=== PATIENT | male | born 1955 | race Caucasian/White ===

== ENCOUNTER 2017-11-27 21:43 | Emergency (ER) | payer BC ==
[~2017-11-27] VITALS: Ht 185.4 cm; Wt 109.1 kg
[~2017-11-27 21:43] MED LIST: CARTIA XT120 MG PO; CEPHALEXIN500 M1 PO; LEVAQUIN 250MG250 MG PO; MULTAQ400 MG PO; NO HOME MEDICATIONS; OMEPRAZOLE20 MG PO
[2017-11-27 21:53] VITALS: TEMP 99.1
[2017-11-27] MEDS ORDERED: ASPIRIN 81M81 MG/TA2 PO (21:54)
[2017-11-27 22:36] LABS: MEAN CELL VOLUME 90 fl (80.0-100.0); MEAN CORPUSCULAR HGB CONC 34 g/dl (33.0-37.0); MEAN PLATELET VOLUME 9.1 fl (7.4-10.4); PLATELET COUNT 155 K/mm3 (130-400); RED BLOOD COUNT 6.11 M/mm3 (4.20-5.60); REDCELL DISTRIBUTION WIDTH-CV 14.6 % (11.5-14.5)
[2017-11-27 22:37] LABS: HEMATOCRIT 54.8 % (42.0-52.0); HEMOGLOBIN 18.4 g/dl (13.5-18.0); MEAN CORPUSCULAR HEMOGLOBIN 30 pg (27.0-31.0)
[2017-11-27 22:52] LABS: INR 1.1 (0.8-3.0); PROTHROMBIN TIME 13.3 SECONDS (9.7-12.8)
[2017-11-27 22:53] LABS: ALBUMIN 4.1 gm/dL (3.5-5.0); BILIRUBIN,TOTAL 1.8 mg/dL (0.0-1.0); CALCIUM 9.2 mg/dL (8.4-10.2); CREATININE, serum 0.9 mg/dL (0.66-1.25); POTASSIUM 4.5 mmol/L (3.4-5.0); TOTAL PROTEIN 8.8 gm/dL (6.4-8.2)
[2017-11-27 23:05] LABS: BAND 1 % (0-10); BASOPHIL 2 % (0-2); LYMPHOCYTE 10 % (20.0-51.0); NEUTROPHILS 82 % (42.0-75.2)
[2017-11-28 01:23] VITALS: BP 114/97; PULSE 123
== END 2017-11-28 01:25 | disposition short-term general hospital (02) ==
LOC: COL.ER 21:43
PROVIDERS: Emergency Medicine
DX: J44.1 Chronic obstructive pulmonary disease with (acute) exacerbation (principal); I48.91 Unspecified atrial fibrillation; Z79.82 Long term (current) use of aspirin; Z87.891 Personal history of nicotine dependence
CPT/HCPCS: J7030; J7050; J7512

== ENCOUNTER 2017-12-07 12:21 | Outpatient (CLI) | payer BC ==
[~2017-12-07] VITALS: Ht 185.4 cm; Wt 104.5 kg
[~2017-12-07 12:21] MED LIST changes: +ASPIRIN 81M81 MG/TA2 PO
[2017-12-07 12:58] LABS: MEAN CELL VOLUME 86 fl (80.0-100.0); MEAN CORPUSCULAR HGB CONC 36 g/dl (33.0-37.0); MEAN PLATELET VOLUME 8.7 fl (7.4-10.4); PLATELET COUNT 304 K/mm3 (130-400); RED BLOOD COUNT 6.73 M/mm3 (4.20-5.60); REDCELL DISTRIBUTION WIDTH-CV 14.3 % (11.5-14.5)
[2017-12-07 12:59] LABS: AMYLASE 65 U/L (30-110); CREATININE, serum 1.03 mg/dL (0.66-1.25); LIPASE 73 U/L (23-300)
[2017-12-07 13:08] LABS: HEMATOCRIT 57.8 % (42.0-52.0); HEMOGLOBIN 20.7 g/dl (13.5-18.0); MEAN CORPUSCULAR HEMOGLOBIN 31 pg (27.0-31.0)
[2017-12-07] MEDS ORDERED: XARELTO20 MG PO (13:14)
[2017-12-07 13:15] LABS: TROPONIN-I < 0.012 ng/mL (0.000-0.034)
[2017-12-07] MEDS ORDERED: ZESTRIL 5MG5 MG PO (13:15)
[2017-12-07] MEDS ORDERED: CARDIZEM CD 24240 MG PO (13:25)
[2017-12-07 13:28] VITALS: BP 118/95; PULSE 166
[2017-12-07 13:29] LABS: INR 1.8 (0.8-3.0); PROTHROMBIN TIME 20.8 SECONDS (9.7-12.8)
[2017-12-07 14:05] LABS: MEAN CELL VOLUME 88 fl (80.0-100.0); MEAN CORPUSCULAR HGB CONC 35 g/dl (33.0-37.0); MEAN PLATELET VOLUME 9.1 fl (7.4-10.4); PLATELET COUNT 316 K/mm3 (130-400); RED BLOOD COUNT 6.74 M/mm3 (4.20-5.60); REDCELL DISTRIBUTION WIDTH-CV 14.4 % (11.5-14.5)
[2017-12-07 14:10] LABS: ALBUMIN 3.8 gm/dL (3.5-5.0); BILIRUBIN,TOTAL 2.7 mg/dL (0.0-1.0); CALCIUM 9.7 mg/dL (8.4-10.2); CREATININE, serum 1.07 mg/dL (0.66-1.25); MAGNESIUM 2.1 mg/dL (1.6-2.3); POTASSIUM 4.3 mmol/L (3.4-5.0); TOTAL PROTEIN 8.3 gm/dL (6.4-8.2)
[2017-12-07 14:21] LABS: HEMATOCRIT 59.1 % (42.0-52.0); MEAN CORPUSCULAR HEMOGLOBIN 31 pg (27.0-31.0)
[2017-12-07 14:23] LABS: HEMOGLOBIN 20.7 g/dl (13.5-18.0)
[2017-12-07 14:25] VITALS: BP 105/85; PULSE 75
[2017-12-07 14:43] VITALS: BP 108/83; PULSE 70
[2017-12-07 15:09] VITALS: BP 108/72; PULSE 68; TEMP 98
[2017-12-07 15:40] VITALS: BP 105/70; PULSE 62; TEMP 98.2
[2017-12-08] MEDS ORDERED: CARAFATE 1GM1 G PO (14:14)
[2017-12-08] MEDS ORDERED: NORCO 325 MG-51 TAB PO (14:14)
[2017-12-08] MEDS ORDERED: PRIL40 PO (14:14)
== END 2017-12-07 18:45 | disposition home or self-care (01) ==
LOC: COL.RAD 12:21
PROVIDERS: Internal Medicine Interventional Cardiology
DX: I48.0 Paroxysmal atrial fibrillation (principal); K55.059 Acute (reversible) ischemia of intestine, part and extent unspecified; I50.22 Chronic systolic (congestive) heart failure; I83.893 Varicose veins of bilateral lower extremities with other complications
CPT/HCPCS: J0282; J2250; J3010; J7060; J7120; Q9967

== ENCOUNTER 2017-12-08 11:31 | Emergency (ER) | payer BC ==
[~2017-12-08] VITALS: Ht 185.4 cm; Wt 106.8 kg
[~2017-12-08 11:31] MED LIST changes: +CARDIZEM CD 24240 MG PO; +XARELTO20 MG PO; +ZESTRIL 5MG5 MG PO
[2017-12-08 12:00] LABS: MEAN CELL VOLUME 85 fl (80.0-100.0); MEAN CORPUSCULAR HGB CONC 36 g/dl (33.0-37.0); MEAN PLATELET VOLUME 9.2 fl (7.4-10.4); PLATELET COUNT 283 K/mm3 (130-400); RED BLOOD COUNT 6.39 M/mm3 (4.20-5.60); REDCELL DISTRIBUTION WIDTH-CV 14.3 % (11.5-14.5)
[2017-12-08 12:01] LABS: HEMATOCRIT 54.5 % (42.0-52.0); HEMOGLOBIN 19.6 g/dl (13.5-18.0); MEAN CORPUSCULAR HEMOGLOBIN 31 pg (27.0-31.0)
[2017-12-08 12:14] LABS: ALANINE AMINOTRANSFERASE 44 U/L (21-72); ALBUMIN 3.7 gm/dL (3.5-5.0); ALKALINE PHOSPHATASE 54 U/L (50-136); ANION GAP 14 mmol/L (7-16); AST,SGOT 26 U/L (15-37); BILIRUBIN,TOTAL 2.3 mg/dL (0.0-1.0); BLOOD UREA NITROGEN 31 mg/dL (9-20); CALCIUM 9.2 mg/dL (8.4-10.2); CARBON DIOXIDE 22 mmol/L (22-30); CHLORIDE 95 mmol/L (98-107); CREATININE, serum 0.89 mg/dL (0.66-1.25); GLUCOSE 106 mg/dL (74-106); LIPASE 142 U/L (23-300); POTASSIUM 4.3 mmol/L (3.4-5.0); SODIUM 131 mmol/L (137-145)
[2017-12-08 12:16] LABS: BAND 1 % (0-10); EOSINOPHIL 1 % (0-4); LYMPHOCYTE 11 % (20.0-51.0); NEUTROPHILS 81 % (42.0-75.2)
[2017-12-08 12:17] LABS: ANISOCYTOSIS 1+; PLATELET ESTIMATE NORMAL (NORMAL)
[2017-12-08 12:24] LABS: TROPONIN-I < 0.012 ng/mL (0.000-0.034)
[2017-12-08 13:08] LABS: COLLECTION METHOD CLEAN CATCH
[2017-12-08 13:13] LABS: MUCOUS Present /lpf; PH 6 (5-8); SQUAMOUS EPITHELIAL None Seen /hpf; URINE APPEARANCE Clear; URINE BACTERIA None Seen /hpf; URINE BILIRUBIN Negative (NEGATIVE); URINE BLOOD Negative (NEGATIVE); URINE COLOR Yellow; URINE GLUCOSE Negative (NEGATIVE); URINE KETONE 1+ (NEGATIVE); URINE LEUKOCYTE ESTERASE Negative (NEGATIVE); URINE NITRATE Negative (NEGATIVE); URINE PROTEIN(semi-quant) Negative (NEGATIVE); URINE RBC 0-2 /hpf; URINE UROBILINOGEN >=4.0 mg/dL (NEGATIVE)
[2017-12-08] MEDS ORDERED: CARAFATE 1GM1 G PO (14:14)
[2017-12-08] MEDS ORDERED: NORCO 325 MG-51 TAB PO (14:14)
[2017-12-08] MEDS ORDERED: PRIL40 PO (14:14)
[2017-12-08 14:26] VITALS: BP 113/77; PULSE 63; TEMP 97.3
== END 2017-12-08 14:25 | disposition home or self-care (01) ==
LOC: COL.ER 11:31
PROVIDERS: Emergency Medicine
DX: R10.13 Epigastric pain (principal); J44.9 Chronic obstructive pulmonary disease, unspecified; I48.91 Unspecified atrial fibrillation; I10 Essential (primary) hypertension; Z87.891 Personal history of nicotine dependence; Z98.890 Other specified postprocedural states; Z79.82 Long term (current) use of aspirin
CPT/HCPCS: J7030; Q9967

== ENCOUNTER 2018-09-09 11:37 | Day surgery (SDC) | payer BC ==
[~2018-09-09] VITALS: Ht 185.4 cm; Wt 127.3 kg
[~2018-09-09 11:37] MED LIST changes: +CARAFATE 1GM1 G PO; +NORCO 325 MG-51 TAB PO; +PRIL40 PO
[2018-09-09 12:00] VITALS: BP 111/68; PULSE 77; TEMP 98
[2018-09-09 12:13] LABS: INR 2.5 (0.8-3.0); POTASSIUM 4.3 mmol/L (3.4-5.0); PROTHROMBIN TIME 28.3 SECONDS (9.7-12.8)
[2018-09-09] MEDS ORDERED: CORDARONE200 MG/TAB PO (12:18)
[2018-09-09] MEDS ORDERED: MULTI VITAMINS1 TAB PO (12:21)
[2018-09-09 12:47] LABS: THYROID STIMULATING HORMONE 1.43 uIU/mL (0.465-4.680)
[2018-09-09 14:00] VITALS: BP 91/65; PULSE 79; TEMP 98
[2018-09-09 14:15] VITALS: BP 101/65; PULSE 54
[2018-09-09 14:30] VITALS: BP 98/69; PULSE 51
[2018-09-09 14:45] VITALS: BP 100/69; PULSE 52
[2018-09-09 15:00] VITALS: BP 106/74; PULSE 55
--- NOTE | 2018-09-09 15:00 | NUR ---
Pt's gag reflex was intact and swallowing water with no difficulty. Pt does not complain of N/V. Pt voiding with no complications. Pt does not complain of pain. Discharge instructions were reviewed with the pt. Pt voices understanding. Pt will call Dr. Foy's office to set up a one month follow up. Pt aware. IV was discontinued with catheter tip intact, no phlebitis or infiltration. Pt was discharged via wheelchair to the care of spouse in private vehicle with personal belongings and discharge instructions in hand.
[2018-09-09 15:28] LABS: ALBUMIN 4.2 gm/dL (3.5-5.0)
--- NOTE | 2018-09-09 15:57 | NUR ---
REPORT TAKEN FROM NOA CALVO IN [employer]. PT WAS CONVERTED TO SINUS BRADICARDIA WITH 150J.
[2018-09-09 15:58] LABS: BILIRUBIN UNCONJUGATED 1.3 mg/dL (0.0-1.1); BILIRUBIN,DIRECT 0.3 mg/dL (0.0-0.4); BILIRUBIN,TOTAL 1.7 mg/dL (0.0-1.0)
== END 2018-09-09 15:15 | disposition home or self-care (01) ==
LOC: COL.CAR 11:37
PROVIDERS: Internal Medicine Interventional Cardiology
DX: I48.0 Paroxysmal atrial fibrillation (principal); I11.0 Hypertensive heart disease with heart failure; I50.22 Chronic systolic (congestive) heart failure; Z79.01 Long term (current) use of anticoagulants; Z79.82 Long term (current) use of aspirin; Z82.49 Family history of ischemic heart disease and other diseases of the circulatory system; Z87.891 Personal history of nicotine dependence
CPT/HCPCS: G9654; J2704; J7030

== ENCOUNTER 2019-07-07 11:26 | Day surgery (SDC) | payer BC ==
[~2019-07-07] VITALS: Ht 185.4 cm; Wt 127.0 kg
[~2019-07-07 11:26] MED LIST changes: +CORDARONE200 MG/TAB PO; +MULTI VITAMINS1 TAB PO
[2019-07-07 12:25] VITALS: BP 110/92; PULSE 94; TEMP 98.1
[2019-07-07 12:30] LABS: INR 2.6 (0.8-3.0); PROTHROMBIN TIME 31.7 SECONDS (9.7-12.8)
[2019-07-07] MEDS ORDERED: CARAFATE 1GM1 G PO (12:31)
[2019-07-07 12:32] LABS: POTASSIUM 4.2 mmol/L (3.4-5.0)
[2019-07-07 13:06] LABS: THYROID STIMULATING HORMONE 1.59 uIU/mL (0.465-4.680)
[2019-07-07 13:45] VITALS: BP 94/63; PULSE 57
--- NOTE | 2019-07-07 13:45 | NUR ---
FANNY/CV complete and report from Reena Suh RN. Pt resting well in bed.
[2019-07-07 14:00] VITALS: BP 119/87; PULSE 60
[2019-07-07 14:15] VITALS: BP 118/86; PULSE 60
[2019-07-07 14:30] VITALS: BP 120/80; PULSE 60
[2019-07-07 14:45] VITALS: BP 126/80; PULSE 60
--- NOTE | 2019-07-07 14:55 | NUR ---
Pt has ambulated, voided and antionette PO intake s n/v. PIV removed with catheter intact.
--- NOTE | 2019-07-07 15:00 | NUR ---
Pt discharged per w/c by nurse with .
== END 2019-07-07 15:37 | disposition home or self-care (01) ==
LOC: COL.CAR 11:26
PROVIDERS: Internal Medicine Interventional Cardiology
DX: I48.0 Paroxysmal atrial fibrillation (principal); I10 Essential (primary) hypertension; I25.10 Atherosclerotic heart disease of native coronary artery without angina pectoris; I11.0 Hypertensive heart disease with heart failure; I50.9 Heart failure, unspecified; K21.9 Gastro-esophageal reflux disease without esophagitis; D64.9 Anemia, unspecified; Z79.01 Long term (current) use of anticoagulants; Z87.891 Personal history of nicotine dependence; Z82.49 Family history of ischemic heart disease and other diseases of the circulatory system
CPT/HCPCS: J2704; J7030

== ENCOUNTER 2022-09-11 08:55 | Inpatient (IN) | payer MEDICARE, BC ==
[~2022-09-11] VITALS: Ht 185.4 cm; Wt 97.0 kg
[2022-09-11 10:19] LABS: CALCIUM 9.2 mg/dL (8.4-10.2); CREATININE, serum 1.06 mg/dL (0.72-1.25); POTASSIUM 4.4 mmol/L (3.5-4.5)
[2022-09-11 10:36] LABS: MUCOUS Present (NOT PRESENT); SQUAMOUS EPITHELIAL None Seen /hpf (0-10); URINE BACTERIA Rare /hpf (NONE SEEN); URINE RBC >50 /hpf (0-2); URINE WBC >50 /hpf (0-2)
[2022-09-11 10:37] LABS: PH 6.5 (5.0-8.5); URINE APPEARANCE Hazy (CLEAR/HAZY); URINE COLOR Yellow (YELLOW); URINE GLUCOSE Negative (NEGATIVE); URINE KETONE 1+ (NEGATIVE); URINE PROTEIN(semi-quant) Negative (NEGATIVE)
[2022-09-11 10:38] LABS: URINE BLOOD 3+ (NEGATIVE); URINE NITRATE Positive (NEGATIVE)
[2022-09-11 10:54] LABS: HEMATOCRIT 44.7 % (42.0-52.0); HEMOGLOBIN 15.3 g/dl (13.5-18.0); MEAN CELL VOLUME 88 fl (80.0-100.0); MEAN CORPUSCULAR HEMOGLOBIN 30 pg (27-31); MEAN CORPUSCULAR HGB CONC 34 g/dl (33.0-37.0); MEAN PLATELET VOLUME 8.8 fl (7.4-10.4); PLATELET COUNT 250 K/mm3 (130-400); RED BLOOD COUNT 5.07 M/mm3 (4.20-5.60)
[2022-09-11 11:07] LABS: MAGNESIUM 1.9 mg/dL (1.6-2.6); PHOSPHOROUS 2.5 mg/dL (2.3-4.7)
[2022-09-11 11:14] LABS: TROPONIN-I 0.019 ng/mL (0.00-0.033)
[2022-09-11] MEDS ORDERED: VITAMIN D31000 I1 PO (11:28)
[2022-09-11] MEDS ORDERED: MULTI VITAMINS1 TAB PO (11:29)
[2022-09-11] MEDS ORDERED: NAC600 MG PO (11:30)
[2022-09-11 11:31] LABS: BAND 4 % (0-10); EOSINOPHIL 1 % (0-4); LYMPHOCYTE 4 % (20.0-51.0); NEUTROPHILS 83 % (42.0-75.2); PLATELET ESTIMATE NORMAL (NORMAL)
[2022-09-11 13:06] LABS: INR 1.4 (0.8-3.0); PROTHROMBIN TIME 16.1 SECONDS (9.7-12.8)
[2022-09-11 13:08] LABS: PARTIAL THROMBOPLASTIN TIME 28.4 SECONDS (26.0-37.0)
[2022-09-11 13:59] VITALS: BP 117/82; PULSE 130
[2022-09-11 16:05] LABS: COLLECTION METHOD CATHETER
[2022-09-11 17:17] VITALS: BP 93/55; PULSE 97; TEMP 98.3
--- NOTE | 2022-09-11 18:08 | NUR ---
PATIENT AWAKE AND ALERT, RESTING IN BED. BOLKUS INFUSING. PATIETN DENIES ANY NEEDS OR COMPLAINTS AT THIS TIME. CALL LIGHT [facility] INREACH. MARILEE PATENT AND DRAINING.
--- NOTE | 2022-09-11 19:20 | NUR ---
IVF BOLUS COMPLETE. HEPARIN INFUSING AT 17.5CC/HR, CARDIZEM DRIP INFUSING AT 15CC/HR. PATIENT AWAKE, ALERT AND RESTING IN BED. NO NEEDS OR COMPLAINTS AT THIS TIME. HUNT PATENT AND DRAINING. CALL LIGHT WTIH IN REACH.
[2022-09-11] MEDS ORDERED: PROSCAR 5MG5 MG PO (20:28)
[2022-09-11] MEDS ORDERED: FLOMAX 0.40.4 MG/CAP PO (20:28)
[2022-09-11 20:40] VITALS: BP 110/62; PULSE 103; TEMP 98.9
[2022-09-12] VITALS (7 sets, daily range): BP systolic 107–120; BP diastolic 59–76; PULSE 85–96; TEMP 97.4–100.2
--- NOTE | 2022-09-12 01:24 | NUR ---
SHIFT ASSESSMENT COMPLETED. THE PATIENT IS ALERT AND ORIENTED AND APPROPRIATE. THE PATIENT DENIED NEEDS. HEPARIN AND CARDIZEM INFUSING PER ORDERS. VITAL SIGNS STABLE AT THIS TIME. WILL MONITOR.
[2022-09-12 06:59] LABS: HEMATOCRIT 43.6 % (42.0-52.0); HEMOGLOBIN 14.4 g/dl (13.5-18.0); MEAN CELL VOLUME 90 fl (80.0-100.0); MEAN CORPUSCULAR HEMOGLOBIN 30 pg (27-31); MEAN CORPUSCULAR HGB CONC 33 g/dl (33.0-37.0); MEAN PLATELET VOLUME 8.9 fl (7.4-10.4); PLATELET COUNT 182 K/mm3 (130-400); RED BLOOD COUNT 4.85 M/mm3 (4.20-5.60); REDCELL DISTRIBUTION WIDTH-CV 15.1 % (11.5-14.5)
[2022-09-12 07:13] LABS: ALBUMIN 2.5 gm/dL (3.4-4.8); CALCIUM 8.4 mg/dL (8.4-10.2); CREATININE, serum 0.9 mg/dL (0.72-1.25); MAGNESIUM 1.9 mg/dL (1.6-2.6); PHOSPHOROUS 2.3 mg/dL (2.3-4.7); POTASSIUM 3.6 mmol/L (3.5-4.5)
[2022-09-12 08:39] LABS: BAND 3 % (0-10); NEUTROPHILS 92 % (42.0-75.2)
[2022-09-12 08:40] LABS: ANISOCYTOSIS 1+; PLATELET ESTIMATE NORMAL (NORMAL)
[2022-09-12 14:26] LABS: CLOSTRIDIUM DIFF A/B NEG; CLOSTRIDIUM DIFF A/B INTERP No C.diff present
[2022-09-12 15:33] LABS: BILIRUBIN,DIRECT 1.1 mg/dL (0.0-0.5); BILIRUBIN,TOTAL 2.2 mg/dL (0.2-1.2)
--- NOTE | 2022-09-12 17:44 | NUR ---
PATIENT AWAKE AND ALERT, RESTING IN BED. NO NEEDS OR COMPLAINTS AT THIS TIME. CARDIZEM AND HEPARIN INFUSIONS GOING AT ORDERED RATE. HUNT PATENT AND DRAINING. CALL LIGHT AND BELONGINGS WITHIN REACH.
--- NOTE | 2022-09-12 21:18 | NUR ---
NURSING SHIFT ASSESSMENT COMPLETED. THE PATIENT IS ALERT, ORIENTED AND APPROPRIATE. THE PATIENT DENIED PAIN. A SNACK WAS PROVIDED. THE PATIENT REPORTS A POOR APPETITE. NO OTHER NEEDS AT THIS TIME. WILL MONITOR.
--- NOTE | 2022-09-12 21:18 | NUR ---
PRESENTED TO PATIENT ROOM AT 1938. NOTICED CPAP SET UP AT BEDSIDE. PT SAID THAT HE WOULD BE WEARING HIS HOME CPAP TONIGHT AND THAT IT WAS ALL SET UP AND READY TO GO. HE STATED HE DID NOT NEED ANY WATER OR HELP WITH IT. WILL CALL CLAIR ELIZALDE FOR ORDER. NO COMPLAINTS. NO VOICED CONCERNS
[2022-09-13 03:28] VITALS: BP 92/58; PULSE 83; TEMP 98
[2022-09-13 04:55] LABS: HEMATOCRIT 41.8 % (42.0-52.0); HEMOGLOBIN 14.3 g/dl (13.5-18.0); MEAN CELL VOLUME 88 fl (80.0-100.0); MEAN CORPUSCULAR HEMOGLOBIN 30 pg (27-31); MEAN CORPUSCULAR HGB CONC 34 g/dl (33.0-37.0); PLATELET COUNT 163 K/mm3 (130-400); RED BLOOD COUNT 4.76 M/mm3 (4.20-5.60); REDCELL DISTRIBUTION WIDTH-CV 15.1 % (11.5-14.5)
[2022-09-13 05:16] LABS: ALBUMIN 2.4 gm/dL (3.4-4.8); CALCIUM 8.4 mg/dL (8.4-10.2); CREATININE, serum 0.82 mg/dL (0.72-1.25); MAGNESIUM 1.9 mg/dL (1.6-2.6); PHOSPHOROUS 1.8 mg/dL (2.3-4.7); POTASSIUM 3.7 mmol/L (3.5-4.5)
[2022-09-13 05:53] LABS: BAND 9 % (0-10); LYMPHOCYTE 6 % (20.0-51.0); NEUTROPHILS 80 % (42.0-75.2); PLATELET ESTIMATE NORMAL (NORMAL)
[2022-09-13 05:54] LABS: ANISOCYTOSIS 1+
[2022-09-13 05:55] LABS: BURR CELLS 1+
[2022-09-13 06:43] VITALS: BP 111/65; PULSE 80
[2022-09-13 11:10] VITALS: BP 84/50; PULSE 87; TEMP 98
--- NOTE | 2022-09-13 12:24 | NUR ---
Pt is independent on all ADls and does not use any DME. Pt lives at home with his , Isabel @ [phone]. Pt gets his medications from [facility] and PCP is Chacorta Vazquez. No other needs at this time. SW to await further recommendations and follow up as needed. DC: Home.
[2022-09-13 16:17] VITALS: BP 97/64; PULSE 85; TEMP 98.2
--- NOTE | 2022-09-13 16:37 | NUR ---
PATIENT IS PLEASANT TODAY. RECEIVING IV ABX ABD WAS GIVEN 3MG OF MAGNESIUM TODAY. CARDIZEM DRIP CHANGED TO 10ML PER HOUR. HEPARIN DRIP RUNNING AT 20ML PER HOUR. PLAN IS FOR FANNY/CARDIOVERSION THURSDAY 09/14. VSS.
[2022-09-13 19:45] VITALS: BP 98/64; PULSE 92; TEMP 98.2
[2022-09-13] MEDS ORDERED: CARAFATE 1GM1 G PO (21:29)
[2022-09-13] MEDS ORDERED: PROTONIX 40MG T40 MG PO (21:29)
[2022-09-14] VITALS (9 sets, daily range): BP systolic 100–113; BP diastolic 64–82; PULSE 75–93; TEMP 97.6–98
--- NOTE | 2022-09-14 03:39 | NUR ---
SPOKE WITH PT EARLIER THIS SHIFT ABOUT USING CPAP FOR SLEEPING. PT STATES HE NORMALLY WOULD, BUT FORGOT THE "CLEANING MACHINE" AND WILL NOT TAKE THE RISK OF BREATING IN SOMETHING DANGEROUS. OFFERED PT ONE OF OUR UNITS, PT DOES NOT FEEL THE NEED FOR THIS OPTION. PT WILL THINK ABOUT USAGE FOR TOMORROW NIGHT.
[2022-09-14 06:44] LABS: BASO % 0.2 % (0.0-2.0); EOS # 0.1 K/mm3 (0.0-0.7); EOS % 0.6 % (0.0-4.0); GRAN # 6.7 K/mm3 (1.4-6.5); GRAN % 75.1 % (42.2-75.2); HEMATOCRIT 42.3 % (42.0-52.0); HEMOGLOBIN 14.3 g/dl (13.5-18.0); LYMPH # 0.8 K/mm3 (1.2-3.4); LYMPH % 8.7 % (20.0-51.0); MEAN CELL VOLUME 89 fl (80.0-100.0); MEAN CORPUSCULAR HEMOGLOBIN 30 pg (27-31); MEAN CORPUSCULAR HGB CONC 34 g/dl (33.0-37.0); MEAN PLATELET VOLUME 9.5 fl (7.4-10.4); MONO # 1.3 K/mm3 (0.1-0.6); MONO % 14.7 % (1.7-9.3); PLATELET COUNT 164 K/mm3 (130-400); RED BLOOD COUNT 4.77 M/mm3 (4.20-5.60)
[2022-09-14 06:55] LABS: ALBUMIN 2.2 gm/dL (3.4-4.8); CALCIUM 8.2 mg/dL (8.4-10.2); CREATININE, serum 0.73 mg/dL (0.72-1.25); PHOSPHOROUS 2.5 mg/dL (2.3-4.7); POTASSIUM 3.4 mmol/L (3.5-4.5)
[2022-09-14] MEDS ORDERED: TURMERIC500 MG PO (09:44)
--- NOTE | 2022-09-14 11:13 | NUR ---
Locomotive Firer/Fireman attended clinical rounds with the team. Hospitalist stated that patient is 50/50 chance of discharge. SW met with patient and reviewed IM form. Patient verbalized understanding and provided signature. SW placed form in chart and provided copy to patient.
[2022-09-14] MEDS ORDERED: LEVAQUIN 750MG750 M1 PO (13:02)
[2022-09-14] MEDS ORDERED: TOPROL XL 50MG50 MG PO (13:02)
[2022-09-14] MEDS ORDERED: TOPROL XL 25MG25 MG PO (13:03)
[2022-09-14] MEDS ORDERED: ELIQUIS 5MG PO (13:04)
--- NOTE | 2022-09-14 15:00 | NUR ---
PATIENTS IV'S AND TELE REMOVED. PATIENT AND HIS GIVEN DISCHARGE INSTRUCTIONS AND EDUCATION. ALL QUESTIONS ANSWERED. HOME HUNT CARE AND MAINTENANCE EDUCATION REVIEWED. PATIENT VERBALIZES UNDERSTANDING AND ALSO STATED HEHAS HAD ONE BEFORE. PATIENT AND HIS AWARE OF HOME MEDICATIONS USES AND WHEN TO TAKE. BOTH VERBALIZE UNDERSTANDING.
--- NOTE | 2022-09-14 15:26 | NUR ---
PATIENT TAKEN OUT VIA WHEELCHAIR, PATIENT LEFT IN STB[place] CONDITION WITH HIS .
== END 2022-09-14 15:00 | disposition home or self-care (01) | DRG 872 ==
LOC: COL.ER 08:55 → MEDICAL 12:21
PROVIDERS: Emergency Medicine; ADMIT Internal Medicine
DX: A41.9 Sepsis, unspecified organism (principal); N30.00 Acute cystitis without hematuria; Q21.12 Patent foramen ovale; J90 Pleural effusion, not elsewhere classified; I48.19 Other persistent atrial fibrillation; N40.1 Benign prostatic hyperplasia with lower urinary tract symptoms; R33.8 Other retention of urine; R39.15 Urgency of urination; K21.9 Gastro-esophageal reflux disease without esophagitis; I11.0 Hypertensive heart disease with heart failure; I50.9 Heart failure, unspecified; D64.9 Anemia, unspecified; E11.9 Type 2 diabetes mellitus without complications; E66.9 Obesity, unspecified; I08.1 Rheumatic disorders of both mitral and tricuspid valves; B96.5 Pseudomonas (aeruginosa) (mallei) (pseudomallei) as the cause of diseases classified elsewhere; I25.10 Atherosclerotic heart disease of native coronary artery without angina pectoris; Z79.01 Long term (current) use of anticoagulants; Z68.28 Body mass index [BMI] 28.0-28.9, adult
CPT/HCPCS: C9113; J0696; J1644; J1956; J2704; J3475; J3480; J7030; J7040

== ENCOUNTER 2022-12-01 09:25 | Inpatient (IN) | payer MEDICARE, BC ==
[~2022-12-01] VITALS: Ht 185.4 cm; Wt 100.0 kg
[2022-12-01] VITALS (9 sets, daily range): BP systolic 89–117; BP diastolic 64–87; PULSE 51–103; TEMP 97.5–98
[~2022-12-01 09:25] MED LIST changes: +ELIQUIS 5MG PO; +FLOMAX 0.40.4 MG/CAP PO; +LEVAQUIN 750MG750 M1 PO; +NAC600 MG PO; +PROSCAR 5MG5 MG PO; +PROTONIX 40MG T40 MG PO; +TOPROL XL 25MG25 MG PO; +TOPROL XL 50MG50 MG PO; +TURMERIC500 MG PO; +VITAMIN D31000 I1 PO
[2022-12-01 10:25] LABS: HEMATOCRIT 45.9 % (42.0-52.0); HEMOGLOBIN 15.2 g/dl (13.5-18.0); MEAN CELL VOLUME 91 fl (80.0-100.0); MEAN CORPUSCULAR HEMOGLOBIN 30 pg (27-31); MEAN CORPUSCULAR HGB CONC 33 g/dl (33.0-37.0); MEAN PLATELET VOLUME 8.9 fl (7.4-10.4); PLATELET COUNT 193 K/mm3 (130-400); RED BLOOD COUNT 5.07 M/mm3 (4.20-5.60); REDCELL DISTRIBUTION WIDTH-CV 14.9 % (11.5-14.5)
[2022-12-01 10:53] LABS: CALCIUM 9.2 mg/dL (8.4-10.2); CREATININE, serum 0.83 mg/dL (0.72-1.25); POTASSIUM 4.4 mmol/L (3.5-4.5)
[2022-12-01 11:13] LABS: THYROID STIMULATING HORMONE 1.007 uIU/mL (0.350-4.940)
[2022-12-01 11:21] LABS: INR 1.6 (0.8-3.0); PARTIAL THROMBOPLASTIN TIME 38.1 SECONDS (26.0-37.0); PROTHROMBIN TIME 18.3 SECONDS (9.7-12.8)
--- NOTE | 2022-12-01 14:49 | NUR ---
BARBARA LATHAM WITH CARDIOLOGY CALLED AND ASKED REGARDING SOTALOL DOSE TODAY FOR BID OR JUST AT HS, ALSO FOR PARAMETERS FOR HR AND BP. STATES SHE WILL TALK WITH AND LET ME KNOW. BARBARA LATHAM CALLED THIS RN BACK. WILL ONLY GIVE 2100 DOSE OF SOTALOL TONIGHT AND PARAMETERS PLACED.
--- NOTE | 2022-12-01 15:22 | NUR ---
pt transferred to med-surg room 353 at approx 1400. VS are WNL at time of discharge and patient is independently ambulatory. he communicated his transfer to his and he was free from concerns and complaints at time of transfer.
--- NOTE | 2022-12-01 15:28 | NUR ---
PT ARRIVED TO UNIT APPROX. 1400. PT ORIENTED TO ROOM AND ASSESSED. TELE PLACED RUNNING SINUS RYTHMN. 1/2 NS 500ML BOLUS ORDERED AND STARTED. EKG OBTAINED BY RESPIRATORY. PT'S SON AT THE BEDSIDE. PT STATED NO QUESTIONS OR CONCERNS AT THIS TIME. PT IS A&O X4, AMBULATES WELL INDEPENDENT AND TOLERATING A GENERAL DIET.
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
[2022-12-02 04:26] VITALS: BP 107/65; PULSE 53; TEMP 97.6
[2022-12-02 06:52] LABS: BASO # 0.1 K/mm3 (0.0-0.2); BASO % 0.6 % (0.0-2.0); EOS # 0.2 K/mm3 (0.0-0.7); EOS % 2.9 % (0.0-4.0); GRAN # 5.4 K/mm3 (1.4-6.5); GRAN % 66.9 % (42.2-75.2); HEMOGLOBIN 13.7 g/dl (13.5-18.0); LYMPH # 1.6 K/mm3 (1.2-3.4); LYMPH % 20.2 % (20.0-51.0); MEAN CELL VOLUME 93 fl (80.0-100.0); MEAN CORPUSCULAR HEMOGLOBIN 30 pg (27-31); MEAN CORPUSCULAR HGB CONC 33 g/dl (33.0-37.0); MEAN PLATELET VOLUME 9.1 fl (7.4-10.4); MONO # 0.7 K/mm3 (0.1-0.6); MONO % 9.1 % (1.7-9.3); PLATELET COUNT 174 K/mm3 (130-400); RED BLOOD COUNT 4.54 M/mm3 (4.20-5.60)
[2022-12-02 07:15] LABS: CALCIUM 8.7 mg/dL (8.4-10.2); CREATININE, serum 0.77 mg/dL (0.72-1.25); POTASSIUM 4.2 mmol/L (3.5-4.5)
[2022-12-02 08:38] VITALS: BP 113/66; PULSE 52; TEMP 97.9
--- NOTE | 2022-12-02 09:15 | NUR ---
Assessment complete. A/O x4. Denies pain or needs at this time.
--- NOTE | 2022-12-02 10:14 | NUR ---
Initial visit; Patient on Sotalol Trial and after one injection appears to be doing well. He thanked Junior Buyer for looking in on him and offering God's blessings.
[2022-12-02 12:00] VITALS: BP 120/73; PULSE 52; TEMP 97.8
--- NOTE | 2022-12-02 14:47 | NUR ---
Patient not in room. Unable to complete intake.
--- NOTE | 2022-12-02 15:40 | NUR ---
ARISTEO met with the patient and his son, Tomas, to discuss discharge plan. The patient lives in [place] with his , Isabel ([phone]). He reports independence with ADLs and does not have any DME. The patient's PCP is Dr. Aster Vazquez and he obtains his medications from [facility]. The patient does not have a DPOA-HC in EMR, but he states that he does have one completed and that it designates his . The patient plans to return home with his upon discharge. No additional needs at this time. *Discharge plan: home with *
[2022-12-02 16:00] VITALS: BP 98/64; PULSE 57; TEMP 97.8
--- NOTE | 2022-12-02 18:08 | NUR ---
Pt denies pain, needs throughout day. Has been up ambulating in hallway independently. Tele SB 56.
[2022-12-02 19:28] VITALS: BP 123/75; PULSE 58; TEMP 98
[2022-12-02 23:18] VITALS: BP 116/73; PULSE 53; TEMP 97.9
[2022-12-03 03:45] VITALS: BP 118/79; PULSE 51; TEMP 98
[2022-12-03 06:47] LABS: BASO # 0.1 K/mm3 (0.0-0.2); BASO % 0.8 % (0.0-2.0); EOS # 0.3 K/mm3 (0.0-0.7); EOS % 3.6 % (0.0-4.0); GRAN # 4.5 K/mm3 (1.4-6.5); GRAN % 62.8 % (42.2-75.2); HEMATOCRIT 43.9 % (42.0-52.0); HEMOGLOBIN 14.4 g/dl (13.5-18.0); LYMPH # 1.7 K/mm3 (1.2-3.4); LYMPH % 23.2 % (20.0-51.0); MEAN CELL VOLUME 92 fl (80.0-100.0); MEAN CORPUSCULAR HEMOGLOBIN 30 pg (27-31); MEAN CORPUSCULAR HGB CONC 33 g/dl (33.0-37.0); MEAN PLATELET VOLUME 9.1 fl (7.4-10.4); MONO # 0.7 K/mm3 (0.1-0.6); MONO % 9.3 % (1.7-9.3); PLATELET COUNT 181 K/mm3 (130-400); RED BLOOD COUNT 4.78 M/mm3 (4.20-5.60); REDCELL DISTRIBUTION WIDTH-CV 14.6 % (11.5-14.5)
[2022-12-03 07:07] LABS: CALCIUM 8.7 mg/dL (8.4-10.2); CREATININE, serum 0.81 mg/dL (0.72-1.25); POTASSIUM 4.3 mmol/L (3.5-4.5)
[2022-12-03 07:28] VITALS: BP 121/70; PULSE 51; TEMP 97.7
--- NOTE | 2022-12-03 07:30 | NUR ---
Shift assessment is done this morning. Patient is sitting on chair. Denies any pain or discomfort. WIll continue to monitor.
[2022-12-03] MEDS ORDERED: BETAPACE 80MG80 MG PO (10:44)
--- NOTE | 2022-12-03 12:30 | NUR ---
Patient is to discharge home. IV discontinued. Discharge instruction is reviewed-Pt. verbalizes understanding. Patient is escorted to private vehicle by this nurse and discharged home with his spouse.
== END 2022-12-03 12:30 | disposition home or self-care (01) | DRG 310 ==
LOC: COL.CAR 09:25 → MEDICAL 13:41 → COL.CAR 13:51 → MEDICAL 13:51
PROVIDERS: ADMIT Internal Medicine Cardiovascular Disease
PROC: 5A2204Z Restoration of Cardiac Rhythm, Single (ICD-10-PCS; principal; 2022-12-01)
DX: I48.19 Other persistent atrial fibrillation (principal); G47.33 Obstructive sleep apnea (adult) (pediatric); N40.0 Benign prostatic hyperplasia without lower urinary tract symptoms; I51.3 Intracardiac thrombosis, not elsewhere classified; I11.0 Hypertensive heart disease with heart failure; K21.9 Gastro-esophageal reflux disease without esophagitis; J30.2 Other seasonal allergic rhinitis; E11.9 Type 2 diabetes mellitus without complications; D64.9 Anemia, unspecified; I50.9 Heart failure, unspecified; Z87.891 Personal history of nicotine dependence; Z99.81 Dependence on supplemental oxygen; Z79.01 Long term (current) use of anticoagulants
CPT/HCPCS: J2704